=== PATIENT | male | born 1960 | race American Indian/Alaskan Native ===

== ENCOUNTER 2020-12-20 20:00 | Emergency (ER) | payer MEDICARE ==
--- NOTE | 2020-12-20 20:13 | EDM.PDOC ---
ED HPI GENERAL MEDICAL PROBLEM - General Chief Complaint: Chest Pain Stated Complaint: MEDICAL V[facility] [place] Time Seen by Provider: 12/20/20 20:03 Source of Information: Reports: Patient, EMS History Limitations: Reports: Intoxication - History of Present Illness INITIAL COMMENTS - FREE TEXT/NARRATIVE: Severino is a 60-year-old male brought in by [facility] for evaluation of left-sided chest pain and left knee pain. The patient reportedly has been on a drinking binge for the last 6 days after he recently lost his son to a drug overdose. Patient was recently hospitalized at [facility] after undergoing a left knee replacement complicated by a staph aureus infection. Patient states that he started having left-sided chest pain several days ago and it is predominantly in the mid axillary line around the seventh or eighth ribs. He does have pleurodynia with increased pain with deep inspiration. He denies any fever. He has not had any cough. He is adamant that he does not do drugs and will not even take the 4 aspirin given by EMS. He refuses any IV medication. Chest Pain Score (Numeric/FACES): 4 - Related Data Allergies Allergy/AdvReac Type Severity Reaction Status Date / Time hydromorphone [From Dilaudid] Allergy Other Verified 12/20/20 21:53 vancomycin Allergy Other Verified 12/20/20 21:53 hair dye Allergy Anaphylactic Uncoded 12/20/20 20:23 Shock Home Meds: Home Meds Amitriptyline [Elavil] 50 mg PO BEDTIME 12/21/14 [History] Carisoprodol 350 mg PO TID PRN 12/21/14 [History] Hydrochlorothiazide 12.5 mg PO DAILY 12/21/14 [History] Lisinopril 40 mg PO DAILY 12/21/14 [History] Aspirin [Halfprin] 81 mg PO DAILY 04/24/18 [History] Gabapentin [Neurontin] 300 mg PO TID 04/24/18 [History] Multivitamin [Multi-Day Vitamins] 1 each PO DAILY 04/24/18 [History] Cefadroxil [Duricef] 500 mg PO Q12HR 12/20/20 [History] Rifampin [Rifadin] 300 mg PO BID 12/20/20 [History] oxyCODONE 5 mg PO Q4HR PRN 12/20/20 [History] ED ROS GENERAL - Review of Systems Review Of Systems: See Below Reason Not Obtained: Limited review of systems due to alcohol intoxication Constitutional: Reports: No Symptoms HEENT: Reports: No Symptoms Respiratory: Reports: Pleuritic Chest Pain (Left side mid axillary line worsens with deep inspiration) Cardiovascular: Reports: Chest Pain (Left side mid axillary line for the last several days) Endocrine: Reports: No Symptoms GI/Abdominal: Reports: No Symptoms : Reports: No Symptoms Musculoskeletal: Reports: Joint Pain (Left knee pain) Skin: Reports: No Symptoms Neurological: Reports: Trouble Speaking (Slurring of words due to intoxication) Psychiatric: Reports: Agitation (Secondary to intoxication) Hematologic/Lymphatic: Reports: No Symptoms Immunologic: Reports: No Symptoms ED EXAM, GENERAL - Physical Exam Exam: See Below Exam Limited By: Intoxication (Patient is mostly cooperative with the examination but refuses any medications) General Appearance: Alert, Anxious, Mild Distress Eye Exam: Bilateral Eye: EOMI Throat/Mouth: Normal Inspection, Normal Oropharynx, Normal Voice, No Airway Compromise Head: Atraumatic, Normocephalic Neck: Normal Inspection, Supple Respiratory/Chest: No Respiratory Distress, Lungs Clear, Normal Breath Sounds, Chest Non-Tender Cardiovascular: Normal Peripheral Pulses, Regular Rate, Rhythm Peripheral Pulses: 2+: Radial (L), Radial (R) GI/Abdominal: Normal Bowel Sounds, Soft, Non-Tender Extremities: Normal Inspection, Normal Range of Motion, No Pedal Edema Neurological: Alert, No Motor/Sensory Deficits, Slow to Respond (Due to alcohol intoxication) Psychiatric: Anxious, Other (Agitated due to alcohol intoxication) Skin Exam: Warm, Dry, Intact (Left knee surgical wound is clean, dry, intact. There is no erythema. The area is not hot. The patient is complaining of tenderness in the joint.) #1 Interpretation EKG Date: 12/20/20 Time: 20:06 Rhythm: NSR (Sinus tachycardia) Rate (Beats/Min): 106 [place]: Normal P-Wave: Present QRS: Normal ST-T: Normal QT: Normal Comparison: NA - No Prior EKG Course - Vital Signs Last Recorded V/S: Last Vital Signs Temp 35.9 C L 12/20/20 20:17 Pulse 116 H 12/20/20 22:19 Resp 18 12/20/20 22:19 BP 158/99 H 12/20/20 22:19 Pulse Ox 98 12/20/20 22:19 - Orders/Labs/Meds Orders: Active Orders 24 hr Category Date Time Status EKG Documentation Completion [RC] ASDIRECTED Care 12/20/20 20:05 Active Chest 1V Frontal [CR] Stat Exams 12/20/20 20:05 Taken Iopamidol [Isovue-370 (76%)] Med 12/20/20 21:15 Active 100 ml IV . DIRECTED Sodium Chloride 0.9% [Normal Saline] 100 ml Med 12/20/20 21:15 Active IV ASDIRECTED Sodium Chloride 0.9% [Saline Flush] Med 12/20/20 21:12 Active 10 ml FLUSH ASDIRECTED PRN Isolation [COMM] Stat Oth 12/20/20 22:06 Ordered EKG 12 Lead [EK] Routine Ther 12/20/20 20:03 Ordered Medication Orders Sodium Chloride (Normal Saline) 100 mls @ 3 mls/sec IV ASDIRECTED JACQUELINE Last Admin: 12/20/20 21:28 Dose: 3 mls/sec Documented by: IZZY Iopamidol (Iopamidol 755 Mg/Ml 100 Ml Bottle) 100 ml IV . DIRECTED JACQUELINE Last Admin: 12/20/20 21:28 Dose: 100 ml Documented by: IZZY Sodium Chloride (Sodium Chloride 0.9% 10 Ml Syringe) 10 ml FLUSH ASDIRECTED PRN PRN Reason: Keep Vein Open Last Admin: 12/20/20 21:28 Dose: 10 ml Documented by: IZZY Labs: Laboratory Tests 12/20/20 12/20/20 12/20/20 Range/Units 20:18 20:18 20:19 WBC 6.6 (4.5-11.0) K/uL RBC 4.90 (4.30-5.90) M/uL Hgb 14.3 (12.0-15.0) g/dL Hct 42.3 (40.0-54.0) % MCV 86 (80-98) fL MCH 29 (27-31) pg MCHC 34 (32-36) % Plt Count 222 (150-400) K/uL Neut % (Auto) 39 (36-66) % Lymph % (Auto) 53 H (24-44) % [place] % (Auto) 6 (2-6) % Eos % (Auto) 0 L (2-4) % Baso % (Auto) 1 (0-1) % D-Dimer, Quantitative 2273.81 H (0.0-500.0) ng/mL Sodium 144 (140-148) mmol/L Potassium 3.5 L (3.6-5.2) mmol/L Chloride 103 (100-108) mmol/L Carbon Dioxide 23 (21-32) mmol/L Anion Gap 21.5 H (5.0-14.0) mmol/L BUN 16 (7-18) mg/dL Creatinine 0.6 L (0.8-1.3) mg/dL Est Cr Clr Drug Dosing 141.19 mL/min Estimated GFR (MDRD) > 60 (>60) Glucose 116 H (74-106) mg/dL Calcium 8.0 L (8.5-10.1) mg/dL Total Bilirubin 0.2 (0.2-1.0) mg/dL AST 48 H (15-37) U/L ALT 38 (12-78) U/L Alkaline Phosphatase 95 (46-116) U/L Troponin I < 0.017 (0.000-0.056) ng/mL C-Reactive Protein < 0.05 (0.0-0.3) mg/dL Total Protein 8.1 (6.4-8.2) g/dL Albumin 3.8 (3.4-5.0) g/dL Globulin 4.3 H (2.3-3.5) g/dL Albumin/Globulin Ratio 0.9 L (1.2-2.2) Ethyl Alcohol mg/dL SARS CoV-2 RNA Rapid ADEN 12/20/20 12/20/20 Range/Units 21:10 22:06 WBC (4.5-11.0) K/uL RBC (4.30-5.90) M/uL Hgb (12.0-15.0) g/dL Hct (40.0-54.0) % MCV (80-98) fL MCH (27-31) pg MCHC (32-36) % Plt Count (150-400) K/uL Neut % (Auto) (36-66) % Lymph % (Auto) (24-44) % [place] % (Auto) (2-6) % Eos % (Auto) (2-4) % Baso % (Auto) (0-1) % D-Dimer, Quantitative (0.0-500.0) ng/mL Sodium (140-148) mmol/L Potassium (3.6-5.2) mmol/L Chloride (100-108) mmol/L Carbon Dioxide (21-32) mmol/L Anion Gap (5.0-14.0) mmol/L BUN (7-18) mg/dL Creatinine (0.8-1.3) mg/dL Est Cr Clr Drug Dosing mL/min Estimated GFR (MDRD) (>60) Glucose (74-106) mg/dL Calcium (8.5-10.1) mg/dL Total Bilirubin (0.2-1.0) mg/dL AST (15-37) U/L ALT (12-78) U/L Alkaline Phosphatase (46-116) U/L Troponin I (0.000-0.056) ng/mL C-Reactive Protein (0.0-0.3) mg/dL Total Protein (6.4-8.2) g/dL Albumin (3.4-5.0) g/dL Globulin (2.3-3.5) g/dL Albumin/Globulin Ratio (1.2-2.2) Ethyl Alcohol 411 mg/dL SARS CoV-2 RNA Rapid ADEN Negative Meds: Medications Generic Name Dose Route Start Last Admin Trade Name Freq PRN Reason Stop Dose Admin Sodium Chloride 100 mls @ 3 mls/sec 12/20/20 21:15 12/20/20 21:28 Normal Saline IV 3 mls/sec ASDIRECTED JACQUELINE Administration Iopamidol 100 ml 12/20/20 21:15 12/20/20 21:28 Iopamidol 755 Mg/Ml 100 Ml Bottle IV 100 ml . DIRECTED JACQUELINE Administration Sodium Chloride 10 ml 12/20/20 21:12 12/20/20 21:28 Sodium Chloride 0.9% 10 Ml Syringe FLUSH 10 ml ASDIRECTED PRN Administration Keep Vein Open Discontinued Medications Generic Name Dose Route Start Last Admin Trade Name Freq PRN Reason Stop Dose Admin Al Hydroxide/Mg Hydroxide 30 ml 12/20/20 20:40 12/20/20 20:54 Aluminum Hydroxide/Magnesium Hydroxide/Simethicone Susp 30 Ml Cup PO 12/20/20 20:41 30 ml ONETIME ONE Administration - Radiology Interpretation Free Text/Narrative:: I reviewed the CT angiogram of the chest on the patient. There is no evidence for pulmonary emboli. The patient does have groundglass opacities in both lower lung segments. No evidence for pulmonary infarct. No focal infiltrates. - Re-Assessments/Exams Free Text/Narrative Re-Assessment/Exam: 12/20/20 22:15 I reviewed Severino's labs showing a normal CBC and comprehensive metabolic panel. His alcohol level is 411. His troponin is negative. CRP is negative. His D-dimer was elevated at 2273 so we proceeded with a CT angiogram of the chest. This was performed and did not demonstrate any evidence for pulmonary emboli but did demonstrate bibasilar groundglass opacities. With this we proceeded with a COVID-19 test. The patient's EKG was unremarkable as well. Certainly there is no sign for any systemic infection related to this prosthetic joint nor is there evidence for infection of the prosthetic joint at this time by exam. The left-sided chest pain is likely due to pleurisy. 12/20/20 22:34 Covid test is negative. I recommend taking naproxen 2 tablets twice daily for the pleurisy. At this time he suitable for discharge home. His sister can take him home. Departure - Departure Time of Disposition: 22:34 Disposition: Home, Self-Care 01 Clinical Impression: Pleuritic chest pain, Chronic pain of left knee Alcohol intoxication Qualifiers: Complication of substance-induced condition: uncomplicated Qualified Code(s): F10.920 - Alcohol use, unspecified with intoxication, uncomplicated Instructions: Pleurodynia, Alcohol Intoxication, [id number], Chronic Knee Pain, Adult, [id number] Referrals: PCP,None [Primary Care Provider] - Forms: ED Department Discharge Care Plan Goals: I recommend taking either Tylenol, ibuprofen, or Aleve for your chest pain. This is arising from inflammation in your chest wall. There was no evidence of this arising from your heart or from a blood clot called a pulmonary embolism. Sepsis Event Note (ED) - Focused Exam Vital Signs: Vital Signs Temp Pulse Resp BP Pulse Ox 12/20/20 22:19 116 H 18 158/99 H 98 12/20/20 20:17 35.9 C L 112 H 20 163/88 H 99 - Problem List & Annotations (1) Alcohol intoxication SNOMED Code(s): 38497146 Code(s): F10.929 - ALCOHOL USE, UNSPECIFIED WITH INTOXICATION, UNSPECIFIED Status: Acute Priority: High Current Visit: Yes Qualifiers: Complication of substance-induced condition: uncomplicated Qualified Code(s): F10.920 - Alcohol use, unspecified with intoxication, uncomplicated (2) Chronic pain of left knee SNOMED Code(s): 8076408349 Code(s): M25.562 - PAIN IN LEFT KNEE; G89.29 - OTHER CHRONIC PAIN Status: Chronic Priority: Medium Current Visit: Yes (3) Pleuritic chest pain SNOMED Code(s): 6058653 Code(s): R07.81 - PLEURODYNIA Status: Acute Priority: High Current Visit: Yes - Problem List Review Problem List Initiated/Reviewed/Updated: Yes - My Orders Last 24 Hours: My Active Orders 12/20/20 20:03 EKG 12 Lead [EK] Routine 12/20/20 20:05 EKG Documentation Completion [RC] ASDIRECTED Chest 1V Frontal [CR] Stat 12/20/20 21:12 Sodium Chloride 0.9% [Saline Flush] 10 ml FLUSH ASDIRECTED PRN 12/20/20 21:15 Iopamidol [Isovue-370 (76%)] 100 ml IV . DIRECTED Sodium Chloride 0.9% [Normal Saline] 100 ml IV ASDIRECTED 12/20/20 22:06 Isolation [COMM] Stat - Assessment/Plan Last 24 Hours: My Active Orders 12/20/20 20:03 EKG 12 Lead [EK] Routine 12/20/20 20:05 EKG Documentation Completion [RC] ASDIRECTED Chest 1V Frontal [CR] Stat 12/20/20 21:12 Sodium Chloride 0.9% [Saline Flush] 10 ml FLUSH ASDIRECTED PRN 12/20/20 21:15 Iopamidol [Isovue-370 (76%)] 100 ml IV . DIRECTED Sodium Chloride 0.9% [Normal Saline] 100 ml IV ASDIRECTED 12/20/20 22:06 Isolation [COMM] Stat
[2020-12-20] MEDS ORDERED: Aluminum Hydroxide/Magnesium Hydroxide/Simethicone Susp 30 ML Cup PO ONE (20:40)
[2020-12-20] MEDS ORDERED: Sodium Chloride 0.9% 10 ML Syringe FLUSH PRN (21:12)
[2020-12-20] MEDS ORDERED: Iopamidol 755 Mg/ML 100 ML Bottle IV SCH (21:15)
[2020-12-20] MEDS ORDERED: Sodium Chloride 0.9% 100 ML IV SCH (21:15)
--- NOTE | 2020-12-20 22:00 | CRLCT ---
Indication: Left-sided chest pain elevated D-dimer Technique: Contrast-enhanced CT PE with 100 mL Isovue 370 Comparison: No comparison studies are available Findings: Normal caliber thoracic aorta. No pulmonary emboli. The heart size is normal. No mediastinal or hilar adenopathy. Basilar patchy ground-glass probable atelectasis versus mild infectious inflammatory processes included typical instructions. Fatty liver. Impression: 1. No pulmonary emboli. 2. Mild basilar patchy ground-glass opacities reflect probable atelectasis versus mild infectious inflammatory etiologies to include atypical infections. Please note that all CT scans at this facility use dose modulation, iterative reconstruction, and/or weight-based dosing when appropriate to reduce radiation dose to as low as reasonably achievable. Dictated by Coral Mello MD @ 12/20/2020 9:58:[address] Coral Mello @ Dec 20 2020 9:58PM
[2020-12-20 22:20] VITALS: BP 158/99; PULSE 116
--- NOTE | 2020-12-21 12:07 | CR ---
CHEST: Portable 12/20/2020 at 8:40 PM CLINICAL HISTORY:Chest pain COMPARISON:None FINDINGS: The heart size, pulmonary vascularity and hilar structures are normal. No infiltrate effusion or pneumothorax is seen. IMPRESSION: No acute cardiopulmonary process.
== END 2020-12-21 06:21 | disposition home or self-care (01) ==
LOC: JP.ED 20:00
DX: R07.81 Pleurodynia (principal); G89.29 Other chronic pain; M25.562 Pain in left knee; F10.920 Alcohol use, unspecified with intoxication, uncomplicated; Z88.5 Allergy status to narcotic agent; Z91.048 Other nonmedicinal substance allergy status; Z88.1 Allergy status to other antibiotic agents; Z79.82 Long term (current) use of aspirin; Z79.899 Other long term (current) drug therapy; Z20.822 Contact with and (suspected) exposure to COVID-19; Y90.8 Blood alcohol level of 240 mg/100 ml or more
CPT/HCPCS: 36415; 71045; 71045-26; 71275; 80053; 80307; 84484; 85025; 85379; 86140; 93005; 99283; 99285-25; A9270-GY; Q9967; U0002